=== PATIENT | male | born 1995 | race Caucasian/White ===

== ENCOUNTER → 2016-12-08 | Outpatient (CLI) | payer OTHER ==
[~2016-12-08] MED LIST: ISOVUE-370 76% 100ML VIAL (Q9967) As Ordered ONE
--- NOTE | 2016-12-08 08:29 | REP ---
Clinical: Cough and shortness of breath. Comparison: None. Technique: Axial contrast enhanced images from the thoracic inlet to the upper abdomen using 100 ml Isovue 370 intravenous contrast material with coronal and sagittal re-formations. Findings: "Tree in bud" infiltrate involving the superior segment right lower lobe suggests acute pneumonia and should be correlated with physical examination and auscultation. Remainder of lung bullock are well-aerated, symmetric, and clear. No further consolidation, nodule or mass lesion is appreciated. No adenopathy. No pleural effusion/reaction or pneumothorax. Tracheobronchial tree is patent. Mediastinum is normal including heart/pericardium, thoracic aorta and pulmonary vasculature. Surrounding musculoskeletal structures are intact. Impression: Small area of presumed infiltrate involving the superior segment right lower lobe requires followup to resolution. Signed by Jelani Awan MD 12/08/2016 08:20 A
== END ==
LOC: M RAD 07:34
PROVIDERS: ATTEND Physician Assistant
DX: R06.02 Shortness of breath (principal); R05 Cough